=== PATIENT | female | born 1950 | race Caucasian/White ===

== ENCOUNTER → 2020-11-29 | Outpatient (CLI) | payer MEDICARE, OTHER ==
[~2020-11-29] MED LIST: ALPHAGAN P5 ML EYEBOTH; AMARYL2 MG PO; AMLODIPINE BESY10 MG PO; AMOXICILLIN875 MG PO; ARNUITY ELLIPT50 MCG INH; ASPIRIN81 MG PO; ATIVAN0.5 MG PO; BACTRIM DS TAB1 EACH PO; BASAGLAR K100 UNIT/1 SQ; BENADRYL 25MG C25 MG PO; BUSPIRONE HCL10 MG PO; CALCIUM + D SO1 EACH PO; CLINDAMYCIN HC150 MG PO; COLCRYS0.6 MG PO; COREG6.25 MG PO; CYMBALTA60 MG PO; DOCUSATE SODIU100 MG PO; DULCOLAX STOOL100 MG PO; FLONASE ALLER15.8 ML; FOLIC ACID1 MG PO; JARDIANCE10 MG PO; LANTUS SOL100 UNIT/1 SQ; LATANOPROST2.5 ML EYEBOTH; LATANOPROST2.5 ML OP; LEVAQUIN TAB 5500 MG PO; LEVOFLOXACIN500 MG PO; LEVOTHYROXINE75 MC1 PO; LEVOTHYROXINE75 MCG PO; LIPITOR40 MG PO; LISINOPRIL40 MG PO; LO-DOSE ASPIRIN81 MG PO; MECLIZINE HCL25 MG PO; MONTELUKAST SOD10 MG PO; MULTIVITAMINS1 EAC1 PO; NEURONTIN 300300 MG PO; NORVASC 5 MG TAB5 MG PO; OMEPRAZOLE20 MG PO; ONDANSETRON HCL8 MG PO; PHENERGAN 25 MG25 M1 PO; PREDNISONE50 MG PO; PROBIOTIC1 EAC1 PO; PROTONIX40 MG PO; ROXANOL SOLN20 MG/ML PO; STOOL SOFTENER100 MG PO; TRAVATAN Z OP; TRAVATAN Z5 ML EYEBOTH; TUMERSAID TABL1 EACH PO; ULORIC80 MG PO; ULTRAM50 MG PO; VASCEPA1 GM PO; VENETOCLAX PO; VICTOZA 1818 MG/3 ML SC; VISTARIL25 MG PO; VITAMIN E400 UNI1 PO; XYLOCAINE 5% OI35 GM EXT; ZOFRAN 4 MG TAB4 MG PO; ZOFRAN ODT 4 MG4 MG PO; ZYLOPRIM 300 M300 MG PO; ZYRTEC10 M3 PO; ZYRTEC10 MG PO; [UNRECOGNIZED DRUG - OTHER] PO; [UNRECOGNIZED DRUG - REMARK] PO
[2020-11-29 10:33] LABS: HEMOGLOBIN 9.3 gm/dl (12.3-15.3); RED BLOOD COUNT 3.74 M/UL (4.00-5.10); WHITE BLOOD COUNT 19.8 K/UL (4.5-11.0)
[2020-11-30 10:12] LABS: CREATININE, URINE 186.8 mg/dL (Not Estab.)
== END ==
LOC: LAB 09:26
PROVIDERS: Internal Medicine Nephrology
DX: N18.30 Chronic kidney disease, stage 3 unspecified (principal); C92.00 Acute myeloblastic leukemia, not having achieved remission
CPT/HCPCS: 36415; 80053; 82043; 82570; 84156; 85027

== ENCOUNTER 2020-12-31 23:32 | Inpatient (IN) | payer MEDICARE, OTHER ==
[~2020-12-31] VITALS: Ht 162.6 cm; Wt 80.7 kg
[~2020-12-31 23:32] MED LIST changes: -ALPHAGAN P5 ML EYEBOTH; -AMARYL2 MG PO; -AMLODIPINE BESY10 MG PO; -AMOXICILLIN875 MG PO; -ARNUITY ELLIPT50 MCG INH; -ATIVAN0.5 MG PO; -BACTRIM DS TAB1 EACH PO; -BASAGLAR K100 UNIT/1 SQ; -BENADRYL 25MG C25 MG PO; -BUSPIRONE HCL10 MG PO; -CLINDAMYCIN HC150 MG PO; -DOCUSATE SODIU100 MG PO; -DULCOLAX STOOL100 MG PO; -FLONASE ALLER15.8 ML; -JARDIANCE10 MG PO; -LATANOPROST2.5 ML EYEBOTH; -LATANOPROST2.5 ML OP; -LEVOFLOXACIN500 MG PO; -LEVOTHYROXINE75 MC1 PO; -LIPITOR40 MG PO; -LO-DOSE ASPIRIN81 MG PO; -MECLIZINE HCL25 MG PO; -ONDANSETRON HCL8 MG PO; -PHENERGAN 25 MG25 M1 PO; -PROBIOTIC1 EAC1 PO; -PROTONIX40 MG PO; -ROXANOL SOLN20 MG/ML PO; -STOOL SOFTENER100 MG PO; -TRAVATAN Z5 ML EYEBOTH; -ULORIC80 MG PO; -VENETOCLAX PO; -VISTARIL25 MG PO; -ZOFRAN 4 MG TAB4 MG PO; -ZOFRAN ODT 4 MG4 MG PO; -ZYLOPRIM 300 M300 MG PO; -ZYRTEC10 M3 PO; -[UNRECOGNIZED DRUG - OTHER] PO; -[UNRECOGNIZED DRUG - REMARK] PO
[2021-01-01 00:04] LABS: HEMOGLOBIN 7.2 gm/dl (12.3-15.3); RED BLOOD COUNT 2.94 M/UL (4.00-5.10); WHITE BLOOD COUNT 17.6 K/UL (4.5-11.0)
[2021-01-01 00:35] LABS: BUN/CREATININE RATIO 27 (0-10)
[2021-01-01 09:26] LABS: BUN/CREATININE RATIO 28 (0-10)
[2021-01-01] MEDS ORDERED: AMLODIPINE BESY10 MG PO (09:32)
[2021-01-01] MEDS ORDERED: ULORIC80 MG PO (09:44)
[2021-01-01] MEDS ORDERED: MECLIZINE HCL25 MG PO (09:46)
[2021-01-01] MEDS ORDERED: ZOFRAN ODT 4 MG4 MG PO (09:47)
[2021-01-01] MEDS ORDERED: ALPHAGAN P5 ML EYEBOTH (09:50)
[2021-01-01] MEDS ORDERED: [UNRECOGNIZED DRUG - OTHER] PO (09:53)
[2021-01-01] MEDS ORDERED: LO-DOSE ASPIRIN81 MG PO (09:54)
[2021-01-01] MEDS ORDERED: LATANOPROST2.5 ML OP (09:54)
[2021-01-01] MEDS ORDERED: ZYRTEC10 M3 PO (09:57)
[2021-01-01] MEDS ORDERED: ARNUITY ELLIPT50 MCG INH (09:58)
[2021-01-01] MEDS ORDERED: PROTONIX40 MG PO (10:00)
[2021-01-01] MEDS ORDERED: VASCEPA1 GM PO (10:01)
[2021-01-01] MEDS ORDERED: STOOL SOFTENER100 MG PO (10:01)
[2021-01-01] MEDS ORDERED: CYMBALTA60 MG PO (10:03)
[2021-01-01] MEDS ORDERED: AMARYL2 MG PO (10:03)
[2021-01-01] MEDS ORDERED: DULCOLAX STOOL100 MG PO (10:05)
[2021-01-02 05:36] LABS: WHITE BLOOD COUNT 14.4 K/UL (4.5-11.0)
[2021-01-02 05:41] LABS: RED BLOOD COUNT 2.42 M/UL (4.00-5.10)
[2021-01-02 05:42] LABS: HEMOGLOBIN 5.9 gm/dl (12.3-15.3)
[2021-01-02 18:25] LABS: HEMOGLOBIN 9.6 gm/dl (12.3-15.3)
[2021-01-03 02:47] LABS: HEMOGLOBIN 8.7 gm/dl (12.3-15.3); RED BLOOD COUNT 3.37 M/UL (4.00-5.10); WHITE BLOOD COUNT 13.2 K/UL (4.5-11.0)
--- NOTE | 2021-01-04 03:27 | NUR ---
01/03/21 2359 PT IS CONTIENT OF STOOL BUT DOES OCCASSIONALLY HAVE SMEAR OF STOOL TO PULL UP.
[2021-01-04 03:29] LABS: HEMOGLOBIN 8.3 gm/dl (12.3-15.3); RED BLOOD COUNT 3.26 M/UL (4.00-5.10); WHITE BLOOD COUNT 11.4 K/UL (4.5-11.0)
[2021-01-06 16:45] LABS: HEMOGLOBIN 8.7 gm/dl (12.3-15.3); RED BLOOD COUNT 3.34 M/UL (4.00-5.10); WHITE BLOOD COUNT 11.3 K/UL (4.5-11.0)
[2021-01-07 03:57] LABS: HEMOGLOBIN 7.8 gm/dl (12.3-15.3); RED BLOOD COUNT 3.04 M/UL (4.00-5.10); WHITE BLOOD COUNT 9.9 K/UL (4.5-11.0)
[2021-01-07] MEDS ORDERED: AMOXICILLIN875 MG PO (16:05)
[2021-01-22] MEDS ORDERED: LATANOPROST2.5 ML EYEBOTH (08:18)
[2021-01-22] MEDS ORDERED: JARDIANCE10 MG PO (08:18)
[2021-01-22] MEDS ORDERED: LEVOTHYROXINE75 MC1 PO (08:20)
[2021-01-22] MEDS ORDERED: MECLIZINE HCL25 MG PO (08:21)
[2021-01-22] MEDS ORDERED: ZOFRAN 4 MG TAB4 MG PO (08:22)
[2021-01-22] MEDS ORDERED: PROTONIX40 MG PO (08:22)
[2021-01-22] MEDS ORDERED: TRAVATAN Z5 ML EYEBOTH (08:23)
[2021-01-22] MEDS ORDERED: ZYLOPRIM 300 M300 MG PO (08:25)
[2021-01-22] MEDS ORDERED: [UNRECOGNIZED DRUG - REMARK] PO (08:26)
[2021-02-12] MEDS ORDERED: LEVOFLOXACIN500 MG PO (11:44)
[2021-02-15] MEDS ORDERED: BACTRIM DS TAB1 EACH PO (11:43)
== END 2021-01-07 17:12 | disposition home or self-care (01) | DRG 682 ==
LOC: ER1 23:32 → CDU 01-01 03:46 → M/S 01-01 03:46
PROVIDERS: Emergency Medicine; Internal Medicine; Internal Medicine Nephrology; Physician Assistant Medical; ADMIT Internal Medicine
DX: N17.9 Acute kidney failure, unspecified (principal); J18.9 Pneumonia, unspecified organism; G93.41 Metabolic encephalopathy; E87.2 Acidosis; C92.00 Acute myeloblastic leukemia, not having achieved remission; E44.1 Mild protein-calorie malnutrition; N18.30 Chronic kidney disease, stage 3 unspecified; I12.9 Hypertensive chronic kidney disease with stage 1 through stage 4 chronic kidney disease, or unspecified chronic kidney disease; E03.9 Hypothyroidism, unspecified; E11.22 Type 2 diabetes mellitus with diabetic chronic kidney disease; E11.40 Type 2 diabetes mellitus with diabetic neuropathy, unspecified; F32.9 Major depressive disorder, single episode, unspecified; F41.9 Anxiety disorder, unspecified; Z82.49 Family history of ischemic heart disease and other diseases of the circulatory system; G89.4 Chronic pain syndrome
CPT/HCPCS: 0240U; 36415; 36430; 70450; 71045; 73502; 80048; 80053; 81001; 82140; 82550; 82553; 82607; 82746; 82803; 82962; 83540; 83550; 83605; 83690; 83735; 83874; 83935; 84300; 84439; 84443; 84484; 85014; 85018; 85025; 85027; 85610; 85652; 85730; 86140; 86850; 86900; 86901; 86920; 86922; 87040; 87086; 93005; 94640; 94664; 94760; 96365; 96366; 96367; 96375; 99285; J0696; J1650; J2405; J2543; J3370; J7070; P9016

== ENCOUNTER → 2021-01-22 | Day surgery (SDC) | payer MEDICARE, OTHER ==
[~2021-01-22] MED LIST changes: +ALPHAGAN P5 ML EYEBOTH; +AMARYL2 MG PO; +AMLODIPINE BESY10 MG PO; +AMOXICILLIN875 MG PO; +ARNUITY ELLIPT50 MCG INH; +ATIVAN0.5 MG PO; +BACTRIM DS TAB1 EACH PO; +BASAGLAR K100 UNIT/1 SQ; +BENADRYL 25MG C25 MG PO; +BUSPIRONE HCL10 MG PO; +CLINDAMYCIN HC150 MG PO; +DOCUSATE SODIU100 MG PO; +DULCOLAX STOOL100 MG PO; +FLONASE ALLER15.8 ML; +JARDIANCE10 MG PO; +LATANOPROST2.5 ML EYEBOTH; +LATANOPROST2.5 ML OP; +LEVOFLOXACIN500 MG PO; +LEVOTHYROXINE75 MC1 PO; +LIPITOR40 MG PO; +LO-DOSE ASPIRIN81 MG PO; +MECLIZINE HCL25 MG PO; +ONDANSETRON HCL8 MG PO; +PHENERGAN 25 MG25 M1 PO; +PROBIOTIC1 EAC1 PO; +PROTONIX40 MG PO; +ROXANOL SOLN20 MG/ML PO; +STOOL SOFTENER100 MG PO; +TRAVATAN Z5 ML EYEBOTH; +ULORIC80 MG PO; +VENETOCLAX PO; +VISTARIL25 MG PO; +ZOFRAN 4 MG TAB4 MG PO; +ZOFRAN ODT 4 MG4 MG PO; +ZYLOPRIM 300 M300 MG PO; +ZYRTEC10 M3 PO; +[UNRECOGNIZED DRUG - OTHER] PO; +[UNRECOGNIZED DRUG - REMARK] PO
== END | disposition home or self-care (01) ==
LOC: OR 07:30
PROVIDERS: Surgery
PROC: 02HV33Z Insertion of Infusion Device into Superior Vena Cava, Percutaneous Approach (ICD-10-PCS; principal; 2021-01-22 07:30)
DX: C92.00 Acute myeloblastic leukemia, not having achieved remission (principal); I87.8 Other specified disorders of veins; I25.10 Atherosclerotic heart disease of native coronary artery without angina pectoris; Z20.822 Contact with and (suspected) exposure to COVID-19; Z91.048 Other nonmedicinal substance allergy status; Z79.4 Long term (current) use of insulin; Z79.82 Long term (current) use of aspirin; Z79.899 Other long term (current) drug therapy
CPT/HCPCS: 71045; 77001; 82962; C1769; C1788; J0690; J1100; J1642; J2001; J2405; J2704; J7040; J7120; U0002

== ENCOUNTER 2021-01-29 10:26 | Emergency (ER) | payer MEDICARE, OTHER ==
[~2021-01-29 10:26] MED LIST changes: -ATIVAN0.5 MG PO; -BACTRIM DS TAB1 EACH PO; -BASAGLAR K100 UNIT/1 SQ; -BENADRYL 25MG C25 MG PO; -BUSPIRONE HCL10 MG PO; -CLINDAMYCIN HC150 MG PO; -DOCUSATE SODIU100 MG PO; -FLONASE ALLER15.8 ML; -LEVOFLOXACIN500 MG PO; -LIPITOR40 MG PO; -ONDANSETRON HCL8 MG PO; -PHENERGAN 25 MG25 M1 PO; -PROBIOTIC1 EAC1 PO; -ROXANOL SOLN20 MG/ML PO; -VENETOCLAX PO; -VISTARIL25 MG PO
[2021-01-29] MEDS ORDERED: CLINDAMYCIN HC150 MG PO (13:33)
[2021-01-30] MEDS ORDERED: VENETOCLAX PO (18:20)
[2021-02-12] MEDS ORDERED: LEVOFLOXACIN500 MG PO (11:44)
[2021-02-15] MEDS ORDERED: BACTRIM DS TAB1 EACH PO (11:43)
== END 2021-01-29 13:56 | disposition home or self-care (01) ==
LOC: ER1 10:26
DX: L76.32 Postprocedural hematoma of skin and subcutaneous tissue following other procedure (principal); I10 Essential (primary) hypertension; Z79.01 Long term (current) use of anticoagulants
CPT/HCPCS: 96374; 99284; J2270

== ENCOUNTER 2021-01-30 13:44 | Observation (INO) | payer MEDICARE, OTHER ==
[~2021-01-30] VITALS: Ht 165.1 cm; Wt 79.4 kg
[~2021-01-30 13:44] MED LIST changes: +CLINDAMYCIN HC150 MG PO
[2021-01-30] MEDS ORDERED: VENETOCLAX PO (18:20)
[2021-01-30 20:24] LABS: HEMOGLOBIN 5.6 gm/dl (12.3-15.3)
[2021-01-31 06:59] LABS: HEMOGLOBIN 7.5 gm/dl (12.3-15.3); RED BLOOD COUNT 2.81 M/UL (4.00-5.10); WHITE BLOOD COUNT 7.7 K/UL (4.5-11.0)
[2021-02-01] MEDS ORDERED: PROBIOTIC1 EAC1 PO (13:02)
[2021-02-12] MEDS ORDERED: LEVOFLOXACIN500 MG PO (11:44)
[2021-02-15] MEDS ORDERED: BACTRIM DS TAB1 EACH PO (11:43)
== END 2021-02-01 15:42 | disposition home or self-care (01) ==
LOC: MED SURG 4 16:53
PROVIDERS: ADMIT Surgery
PROC: 05HM33Z Insertion of Infusion Device into Right Internal Jugular Vein, Percutaneous Approach (ICD-10-PCS; principal; 2021-01-31 14:15)
DX: T80.212A Local infection due to central venous catheter, initial encounter (principal); L03.313 Cellulitis of chest wall; I97.630 Postprocedural hematoma of a circulatory system organ or structure following a cardiac catheterization; D46.9 Myelodysplastic syndrome, unspecified; I10 Essential (primary) hypertension; E78.5 Hyperlipidemia, unspecified; K44.9 Diaphragmatic hernia without obstruction or gangrene; E11.51 Type 2 diabetes mellitus with diabetic peripheral angiopathy without gangrene; Z20.822 Contact with and (suspected) exposure to COVID-19; Z79.82 Long term (current) use of aspirin; Z79.891 Long term (current) use of opiate analgesic; Z79.4 Long term (current) use of insulin; Z79.899 Other long term (current) drug therapy; Z91.048 Other nonmedicinal substance allergy status; Y84.0 Cardiac catheterization as the cause of abnormal reaction of the patient, or of later complication, without mention of misadventure at the time of the procedure
CPT/HCPCS: 36415; 36430; 80202; 82962; 85014; 85018; 85027; 86850; 86900; 86901; 86920; 86922; 87070; 87205; 96374; 96375; 96376; C1769; C1788; G0378; G0379; J2270; J2704; J3010; J3370; J7040; J7050; J7070; J7120; P9016; U0002

== ENCOUNTER 2021-02-19 01:53 | Inpatient (IN) | payer MEDICARE, OTHER ==
[~2021-02-19] VITALS: Ht 167.6 cm; Wt 79.4 kg
[~2021-02-19 01:53] MED LIST changes: +BACTRIM DS TAB1 EACH PO; +LEVOFLOXACIN500 MG PO; +PROBIOTIC1 EAC1 PO; +VENETOCLAX PO
[2021-02-19 03:10] LABS: WHITE BLOOD COUNT 4.1 K/UL (4.5-11.0)
[2021-02-19 03:28] LABS: HEMOGLOBIN 5.9 gm/dl (12.3-15.3)
[2021-02-19 03:36] LABS: RED BLOOD COUNT 2.31 M/UL (4.00-5.10)
[2021-02-19] MEDS ORDERED: MONTELUKAST SOD10 MG PO (08:22)
[2021-02-19] MEDS ORDERED: VASCEPA1 GM PO (08:24)
[2021-02-19] MEDS ORDERED: BASAGLAR K100 UNIT/1 SQ (09:55)
[2021-02-19] MEDS ORDERED: FLONASE ALLER15.8 ML (09:58)
[2021-02-19] MEDS ORDERED: BUSPIRONE HCL10 MG PO (10:03)
[2021-02-19] MEDS ORDERED: BENADRYL 25MG C25 MG PO (10:04)
[2021-02-19] MEDS ORDERED: VISTARIL25 MG PO (11:45)
[2021-02-19] MEDS ORDERED: ONDANSETRON HCL8 MG PO (11:47)
[2021-02-19] MEDS ORDERED: PHENERGAN 25 MG25 M1 PO (11:47)
[2021-02-19] MEDS ORDERED: ULORIC80 MG PO (11:49)
[2021-02-19] MEDS ORDERED: DOCUSATE SODIU100 MG PO (11:52)
[2021-02-19] MEDS ORDERED: LIPITOR40 MG PO (20:00)
[2021-02-20 04:35] LABS: RED BLOOD COUNT 2.6 M/UL (4.00-5.10); WHITE BLOOD COUNT 1.9 K/UL (4.5-11.0)
[2021-02-20 04:37] LABS: HEMOGLOBIN 6.8 gm/dl (12.3-15.3)
--- NOTE | 2021-02-21 00:20 | NUR ---
PATIENT'S INITIAL TEMPERATURE BEFORE STARTING BLOOD TRANSFUSION WAS 98.6 DEGREES FARENHEIT. AT PATIENT'S ONE HOUR POST VITAL CHECK PATIENT'S TEMP WAS 101.4 DEGREES FARENHEIT. I STARTED PATIENT'S NORMAL SALINE. I NOTIFIED LAB OF SUSPECTED TRANSFUSION REACTION. I WENT INTO PATIENT'S ROOM AND DID A SECOND VERIFICATION. I PUT THE BLOOD TUBING AND BAG INTO A BIOHAZARD BAG. I NOTIFIED OF SUSPECTED REACTION. SEE PROVIDER NOTIFICATIONS FOR DETAILS. I ADMINISTERED TYLENOL AND GAVE THE PT AN ICE PACK. I TOOK TRANSFUSION REACTION PAPERWORK AND BLOOD TUBING/BAG TO LAB. I SENT A URINE SAMPLE TO LAB. PT IS SITTING IN BED. NO S/S OF DISTRESS AT THIS TIME.
--- NOTE | 2021-02-21 01:35 | NUR ---
APPROX. 0135: PATIENT'S BED ALARM AND STRIP ALARM WERE GOING OFF. I ALONG WITH PATIENT RESIDENTIAL TREATMENT COUNSELOR (NASIMA) WENT TO PATIENT'S ROOM AND LOOKED INTO HER WINDOW. PATIENT WAS LYING IN THE FLOOR. I ALONG WITH TECH (NASIMA) GOWNED UP, APPLIED EYE SHIELD, N-95, GLOVES AND SURGICAL MASK BECAUSE PATIENT IS COVID POSITIVE. UPON INITIAL ASSESSMENT, PATIENT WAS LYING IN THE FLOOR. NO ACUTE DISTRESS NOTED. PATIENT WAS NOT COMPLAINING OF ANY PAIN. NO INJURIES NOTED. PATIENT STATED THAT SHE WAS FINE. PT'S VITAL SIGNS WERE STABLE. BP:159/67, HR:89, RR:18, O2:96% ON 2L NC, AND T:99.1 DEGREES FARENHEIT. TEMPERATURE WAS TRENDING DOWN FROM BLOOD TRANSFUSION REACTION. PATIENT WAS ATTEMPTING TO GO TO THE RESTROOM BY HERSELF AFTER BEING INFORMED MULTIPLE TIMES NOT TO GET UP BY HERSELF. PATIENT HAD A STRIP ALARM ON, BED ALARM ON, YELLOW GOWN ON, YELLOW BRACELET ON, AND HER YELLOW LIGHT WAS ON. PATIENT ORIGINALLY HAD HER YELLOW NON-SKID SOCKS ON, BUT PATIENT REMOVED THEM BEFORE GETTING UP. THEY WERE LAYING ON THE BEDSIDE TABLE. PATIENT WAS HOOKED UP TO CONTINUOUS IV FLUIDS. APPROX. 0146: NOTIFIED THAT THE PT HAD FELL. INFORMED OF PATIENT SITUATION. NOTIFIED OF PATIENT'S VITAL SIGNS. STATED "THAT'S OKAY." NO NEW ORDERS OBTAINED AT THIS TIME. SEE PROVIDER NOTIFICATIONS FOR DETAILS. NOTIFIED PATIENT'S DAUGHTER (NOAH MINAYA) OF PATIENT'S FALL. NOTIFIED DOLL DRESSER (RAMANDEEP) OF PATIENT'S FALL.
[2021-02-21 07:06] LABS: HEMOGLOBIN 8.7 gm/dl (12.3-15.3)
[2021-02-21 07:21] LABS: RED BLOOD COUNT 3.44 M/UL (4.00-5.10); WHITE BLOOD COUNT 1.6 K/UL (4.5-11.0)
[2021-02-22 07:19] LABS: HEMOGLOBIN 8.9 gm/dl (12.3-15.3); RED BLOOD COUNT 3.53 M/UL (4.00-5.10)
[2021-02-22 07:26] LABS: WHITE BLOOD COUNT 1.3 K/UL (4.5-11.0)
[2021-02-23 04:03] LABS: RED BLOOD COUNT 3.23 M/UL (4.00-5.10)
[2021-02-23 04:07] LABS: WHITE BLOOD COUNT 1.1 K/UL (4.5-11.0)
[2021-02-24 04:07] LABS: HEMOGLOBIN 8.2 gm/dl (12.3-15.3); RED BLOOD COUNT 3.24 M/UL (4.00-5.10)
[2021-02-24 04:21] LABS: WHITE BLOOD COUNT 0.9 K/UL (4.5-11.0)
[2021-02-25 02:44] LABS: HEMOGLOBIN 7.9 gm/dl (12.3-15.3); RED BLOOD COUNT 3.05 M/UL (4.00-5.10)
[2021-02-25 02:48] LABS: WHITE BLOOD COUNT 1.9 K/UL (4.5-11.0)
[2021-02-26 05:24] LABS: RED BLOOD COUNT 3.17 M/UL (4.00-5.10)
[2021-02-26 05:29] LABS: WHITE BLOOD COUNT 2.5 K/UL (4.5-11.0)
[2021-02-27 18:07] LABS: HEMOGLOBIN 7.8 gm/dl (12.3-15.3); RED BLOOD COUNT 3.08 M/UL (4.00-5.10)
[2021-02-27 18:10] LABS: WHITE BLOOD COUNT 3.6 K/UL (4.5-11.0)
[2021-02-28 05:34] LABS: HEMOGLOBIN 7.4 gm/dl (12.3-15.3); RED BLOOD COUNT 2.93 M/UL (4.00-5.10); WHITE BLOOD COUNT 3.6 K/UL (4.5-11.0)
[2021-03-01 03:43] LABS: RED BLOOD COUNT 2.75 M/UL (4.00-5.10); WHITE BLOOD COUNT 3.8 K/UL (4.5-11.0)
--- NOTE | 2021-03-01 05:47 | NUR ---
3210 DR DAVENPORT AWARE OF PT CURRENT HGB AND BUN. ORDERS TO GIVE 1 UNIT IRRADIATED PRBCS. ORDERS PLACED.
[2021-03-02 05:12] LABS: HEMOGLOBIN 8.1 gm/dl (12.3-15.3)
[2021-03-02 05:15] LABS: RED BLOOD COUNT 3.23 M/UL (4.00-5.10)
--- NOTE | 2021-03-02 05:47 | NUR ---
0547 Dr León aware of pt current BUN and K this am. Orders received.
--- NOTE | 2021-03-02 07:05 | NUR ---
213 pt daughter updated on pt current status and poc. all questions answered. 0620 pt requesting to talk to daughter regarding code status. Updated Dr León on recent ekg and pt request to discuss code status with daughter. pt AOx4. pt spoke to daughter, Yun, on speaker phone with this rn. pt continued stating "I just want to go home, I don't want to do this anymore. Please let me go." pt requesting for daughter to be at bedside. pt and daughter made aware of need for permission from supervisory geographer to allow a visitor while COVID +. pt reports she would like to be comfort care when daughter is allowed to be with her. Viridiana RN aware of pt current wishes, RN notified .
[2021-03-02] MEDS ORDERED: ATIVAN0.5 MG PO (16:20)
[2021-03-02] MEDS ORDERED: ROXANOL SOLN20 MG/ML PO (16:26)
== END 2021-03-02 17:06 | DRG 871 ==
LOC: ER1 01:53 → M/S 05:27 → CDU 05:27 → CCU 05:27 → M/S 08:40 → PROG CARE 02-24 21:57 → CCU 02-25 15:29
PROVIDERS: Family Medicine; Internal Medicine; ADMIT Internal Medicine
PROC: 05HN33Z Insertion of Infusion Device into Left Internal Jugular Vein, Percutaneous Approach (ICD-10-PCS; principal; 2021-02-25)
PROC: B544ZZA Ultrasonography of Left Jugular Veins, Guidance (ICD-10-PCS; 2021-02-25)
PROC: 30233N1 Transfusion of Nonautologous Red Blood Cells into Peripheral Vein, Percutaneous Approach (ICD-10-PCS; 2021-02-26)
DX: A41.89 Other specified sepsis (principal); U07.1 COVID-19; J12.82 Pneumonia due to coronavirus disease 2019; J80 Acute respiratory distress syndrome; J15.212 Pneumonia due to Methicillin resistant Staphylococcus aureus; J15.1 Pneumonia due to Pseudomonas; D61.818 Other pancytopenia; D84.9 Immunodeficiency, unspecified; N17.9 Acute kidney failure, unspecified; C92.00 Acute myeloblastic leukemia, not having achieved remission; T81.89XA Other complications of procedures, not elsewhere classified, initial encounter; R65.20 Severe sepsis without septic shock; N18.30 Chronic kidney disease, stage 3 unspecified; E11.22 Type 2 diabetes mellitus with diabetic chronic kidney disease; I12.9 Hypertensive chronic kidney disease with stage 1 through stage 4 chronic kidney disease, or unspecified chronic kidney disease; E87.5 Hyperkalemia; Z66 Do not resuscitate; E03.9 Hypothyroidism, unspecified; G89.4 Chronic pain syndrome; E78.5 Hyperlipidemia, unspecified; Z96.611 Presence of right artificial shoulder joint; D46.9 Myelodysplastic syndrome, unspecified; Z90.710 Acquired absence of both cervix and uterus; Z22.322 Carrier or suspected carrier of Methicillin resistant Staphylococcus aureus; Z98.49 Cataract extraction status, unspecified eye; Z80.3 Family history of malignant neoplasm of breast; Z83.3 Family history of diabetes mellitus; Y92.89 Other specified places as the place of occurrence of the external cause
CPT/HCPCS: ECHO; 36415; 36430; 36600; 71045; 73630; 80048; 80053; 80202; 81001; 82728; 82803; 82962; 83605; 83615; 83735; 83880; 84132; 85018; 85025; 85027; 85379; 85610; 86140; 86850; 86900; 86901; 86902; 86920; 86922; 87040; 87205; 93005; 93306; 94640; 94660; 94664; 94760; 96374; 96375; 99284; J0330; J0610; J0692; J1100; J1940; J2020; J2185; J2250; J2405; J3010; J3370; J7030; J7040; J7050; J7070; P9016; P9040; U0002